=== PATIENT | female | born 1995 | race African-American/Black ===

== ENCOUNTER 2023-12-07 12:28 | Emergency (ER) | payer OTHER ==
[~2023-12-07] VITALS: Ht 160 cm; Wt 73.0 kg
[2023-12-07] MEDS ORDERED: CEPHALEXIN MONOHYDRATE 500 MG CAPSULE PO ONE (13:01)
[2023-12-07] MEDS: CEPHALEXIN MONOHYDRATE 500 MG CAPSULE PO ONE (13:03)
[2023-12-07] MEDS ORDERED: CEPH500T PO (13:10)
[2023-12-07 13:23] VITALS: BP 128/99; TEMP 98; O2SAT 100
== END 2023-12-07 13:22 | disposition home or self-care (01) ==
LOC: ER 12:44
DX: S61.213A Laceration without foreign body of left middle finger without damage to nail, initial encounter (principal); W26.0XXA Contact with knife, initial encounter; Y93.89 Activity, other specified; Y92.89 Other specified places as the place of occurrence of the external cause; Y99.8 Other external cause status